=== PATIENT | female | born 1960 | race Caucasian/White ===

== ENCOUNTER 2016-07-30 07:09 | Day surgery (SDC) | payer BC ==
[~2016-07-30 07:09] MED LIST: Lactated Ringers 1,000 ML IV SCH; Sodium Chloride 0.9% 10 ML Syringe FLUSH PRN; Sodium Chloride 0.9% 2.5 ML Syringe FLUSH PRN
[2016-07-30] MEDS ORDERED: Ondansetron 4 MG/2 ML SDV ONE (07:17)
[2016-07-30] MEDS ORDERED: fentaNYL 100 MCG/2 ML SDV ONE (07:17)
[2016-07-30] MEDS ORDERED: Propofol 200 MG/20 ML SDV ONE (07:17)
[2016-07-30] MEDS ORDERED: Midazolam 1 MG/ML 2 ML SDV ONE (07:18)
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
--- NOTE | 2016-07-30 09:20 | PCM.OPNOTE ---
- General Post-Op/Procedure Note Date of Surgery/Procedure: 07/30/16 Operative Procedure(s): Operative hysteroscopy/polypectomy, curettage of endometrium Findings: 2 cm fundal polyp, small right ostia polyp Pre Op Diagnosis: Postmenopausal bleeding Post-Op Diagnosis: postmenopausal bleeding. endometrial polyp Anesthesia Technique: General LMA Primary Surgeon: Christina Iyer Pathology: polyp, curretings of endometrium Fluid Replacement, Intraop: 800 (Fluid deficit 200 mL) EBL in mLs: 10 Complications: none known Condition: Good Free Text/Narrative:: Dictation [id number]
--- NOTE | 2016-07-30 09:26 | PCM.POSTAN ---
POST ANESTHESIA ASSESSMENT - MENTAL STATUS Mental Status: alert, oriented - RESPIRATORY Respiratory Status: respiratory rate WNL, airway patent, O2 saturation stable - CARDIOVASCULAR CV Status: pulse rate WNL, blood pressure stable, elevated pulse rate ( comparable with preanesthetic levels) - GASTROINTESTINAL GI Status: no symptoms - PAIN Pain Score: 2 - POST OP HYDRATION Hydration Status: adequate & stable - OBSERVATIONS Free Text/Narrative:: Pt resting comfortably. VSS. Stable for discharge to phase II recovery when appropriate - no apparent anesthetic complications.
[2016-07-30] MEDS ORDERED: Ketorolac 30 MG/ML SDV IVPUSH ONE (10:05)
--- NOTE | 2016-07-30 10:14 | PCM48HPAN ---
Post Anesthesia Note - EVALUATION WITHIN 48HRS OF ANESTHETIC Vital Signs in Normal Range: Yes Patient Participated in Evaluation: Yes Respiratory Function Stable: Yes Airway Patent: Yes Cardiovascular Function Stable: Yes Hydration Status Stable: Yes Pain Control Satisfactory: Yes Nausea and Vomiting Control Satisfactory: Yes Mental Status Recovered: Yes - COMMENTS/OBSERVATIONS Free Text/Narrative:: Pt currently receiving some tordol for cramping, otherwise doing well. No apparent anesthesia complications.
--- NOTE | 2016-07-30 15:52 | OR ---
SURGEON: Christina Iyer M.D. DATE OF PROCEDURE: 07/30/2016 PREOPERATIVE DIAGNOSIS: Postmenopausal bleeding. POSTOPERATIVE DIAGNOSIS: 1. Postmenopausal bleeding. 2. Endometrial polyp. PROCEDURE: Operative hysteroscopy, polypectomy, endometrial curettage. ANESTHESIA: General LMA. FLUIDS: 800 mL crystalloid. ESTIMATED BLOOD LOSS: Less than 10 mL. FLUID DEFICIT: 200 mL normal saline. FINDINGS: 2 cm fundal uterine polyp with a smaller right ostia polyp, otherwise smooth endometrial cavity. DISPOSITION: The patient to PACU in stable condition. SPECIMENS: To pathology. DESCRIPTION OF PROCEDURE: Denise is a 56-year-old female, who has had difficulties with recent abnormal uterine bleeding. Endometrial biopsy was benign. Sonohysterogram reveals a 2 cm fundal polyp. Therefore, I have discussed options, and she would like to proceed with surgical intervention from hysteroscopy. Risks of the procedure have been discussed with her. Proper consent obtained. The patient taken to the operating room, where she underwent general LMA, was placed in modified dorsal lithotomy position. Prepped and draped in the usual sterile fashion. The bladder was drained. A time-out was performed. Speculum was introduced in the vagina. Posterior lip of the cervix was grasped. The cervical os was gently dilated to 6 mm. A 5 mm hysteroscope was now introduced using normal saline as the distention media. I was able to visualize the endometrial cavity. The ostia were visualized. There was a small right ostial polyp, and then a much larger fundal endometrial polyp present. Photographs taken. MyoSure was now introduced. The polypectomy was performed x2. The remainder of the uterine cavity appears smooth walled and normal in appearance. The hysteroscope was now removed and a gentle curettage of endometrium was performed. The patient tolerated the procedure well overall. All instruments removed from the vagina. Sponge and instrument counts correct x2. Hemostasis appears evident. The patient will go to PACU in stable condition. Specimen to pathology. DIANE / LI /[id number]
[2016-07-30 17:32] VITALS: BP 163/88
== END 2016-07-30 11:10 | disposition home or self-care (01) ==
LOC: MW.SDS 07:09
PROVIDERS: ATTEND Obstetrics & Gynecology
DX: N84.0 Polyp of corpus uteri (principal); N95.0 Postmenopausal bleeding; I10 Essential (primary) hypertension; F41.9 Anxiety disorder, unspecified; Z79.899 Other long term (current) drug therapy
CPT/HCPCS: 36415; 58558; 84132; 84703; 85027; 88305; J1885; J2250; J3010; J7120; 00952; J2405; J2704

== ENCOUNTER → 2016-08-24 | Outpatient (CLI) | payer BC ==
--- NOTE | 2016-08-24 16:05 | MY ---
EXAMINATION: Bilateral digital mammography utilizing CAD. HISTORY: Screening exam. Baseline. FINDINGS: Bilateral scattered fibroglandular densities. No suspicious calcifications, masses or a rchitectural distortions. No pathologic appearing lymph nodes, no abnormal skin thickening or nipp le inversion. CAD highlighted regions appear normal at this time. IMPRESSION: BI-RADS category I - negative mammogram. Continued screening according to ACR-ACS gu idelines suggested. THE FALSE-NEGATIVE RATE OF MAMMOGRAM IS APPROXIMATELY 10%. MANAGEMENT OF A PALPABLE ABNORMALITY MUST BE BASED UPON CLINICAL GROUNDS. SENSITIVITY FOR DETECTION OF ABNORMALITIES IN DENSE BREASTS IS LOW. NOTE: A letter will be sent to the patient regarding findings. [facility] -- [place] [phone] - FAX [phone]
== END ==
LOC: MW.MAM 09:39
PROVIDERS: ATTEND Obstetrics & Gynecology
DX: Z12.31 Encounter for screening mammogram for malignant neoplasm of breast (principal)
CPT/HCPCS: G0202; G0202-26

== ENCOUNTER 2018-08-11 23:27 | Emergency (ER) | payer BC ==
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
[2018-08-11] MEDS ORDERED: cefTRIAXone 1 GM Vial IM ONE (23:57)
[2018-08-12] MEDS ORDERED: cefTRIAXone 1 GM in Lidocaine 1% 4 ML IM ONE (00:19)
[2018-08-12] MEDS ORDERED: Diphtheria,Pertussis(Acell),Tetanus Vaccine 0.5 ML Syringe IM ONE (00:38)
--- NOTE | 2018-08-12 01:32 | CR ---
INDICATION: Pt fell today, caught self with hands. TECHNIQUE: Right hand 2 views. COMPARISON: None. FINDINGS: Bones: Alignment is normal. No fractures or bone lesions. Joint spaces: Unremarkable. Soft tissues: Unremarkable. IMPRESSION: Unremarkable right hand. Dictated by: Reynaldo Cox MD @ 08/12/2018 01:31:24 (Electronically Signed)
--- NOTE | 2018-08-12 01:42 | CT ---
INDICATION: Fall TECHNIQUE: CT maxillofacial without contrast. COMPARISON: None FINDINGS: Facial bones: No fractures or bone lesions. Specifically the nasal bones, temporomandibular joints, maxilla and mandible appear intact. Orbits and globes: Unremarkable. Sinuses: Mild mucosal thickening involving the floor the right maxillary sinus. Soft tissues: Unremarkable. IMPRESSION: No sign of acute injury. Dictated by Reynaldo Cox MD @ 08/12/2018 1:40:05 AM Please note that all CT scans at this facility use dose modulation, iterative reconstruction, and/or weight-based dosing when appropriate to reduce radiation dose to as low as reasonably achievable. Dictated by: Reynaldo Cox MD @ 08/12/2018 01:40:12 (Electronically Signed)
--- NOTE | 2018-08-12 01:46 | CT ---
INDICATION: Fall TECHNIQUE: CT head without contrast. COMPARISON: None FINDINGS: CSF spaces: Within normal limits for age. Brain parenchyma: The ibrahim-white differentiation is normal. No sign of mass, hemorrhage, or midline shift. Periventricular white matter changes consistent with chronic microvascular disease. Skull base and calvarium: The visualized paranasal sinuses and mastoid air cells demonstrate no acute or significant findings. The visualized orbits are grossly unremarkable. No skull fractures. IMPRESSION: No evidence of acute intracranial trauma. Periventricular white matter changes consistent chronic microvascular disease. Dictated by Reynaldo Cox MD @ 08/12/2018 1:42:06 AM Please note that all CT scans at this facility use dose modulation, iterative reconstruction, and/or weight-based dosing when appropriate to reduce radiation dose to as low as reasonably achievable. Dictated by: Reynaldo Cox MD @ 08/12/2018 01:45:27 (Electronically Signed)
[2018-08-12 02:55] VITALS: BP 155/85
--- NOTE | 2018-08-12 15:20 | CR ---
EXAM DATE: 08/11/18 PATIENT'S AGE: 58 Patient: SUZI BENAVIDEZ Facility: [facility] . Site : 1960 Study: XRay-Extremity Left hand [id number]/12/[id number] 9:26:17 AM Ordering Physician: Alton Prado Final Report: INDICATION: Left hand pain post fall. TECHNIQUE: Two views of the left hand. COMPARISON: None. FINDINGS: No soft tissue swelling, fracture, subluxation or other abnormality. IMPRESSION: Negative left hand. Dictated by Nilson Mosqueda MD @ Aug 12 2018 9:53AM Signed by: Nilson Mosqueda MD @08/12/2018 9:55:18 AM (Electronic Signature) Report Signed by Proxy. ARETHA
== END 2018-08-12 02:05 | disposition home or self-care (01) ==
LOC: MW.ED 23:27
DX: S02.5XXA Fracture of tooth (traumatic), initial encounter for closed fracture (principal); S60.222A Contusion of left hand, initial encounter; S60.221A Contusion of right hand, initial encounter; F41.9 Anxiety disorder, unspecified; E66.9 Obesity, unspecified; Z79.899 Other long term (current) drug therapy; W01.0XXA Fall on same level from slipping, tripping and stumbling without subsequent striking against object, initial encounter; Z68.35 Body mass index [BMI] 35.0-35.9, adult
CPT/HCPCS: 70450; 70486; 73120; 90471; 90715; 96372; 99284; J0696; J2001